=== PATIENT | female | born 1995 | race Caucasian/White ===

== ENCOUNTER 2020-10-07 22:58 | Emergency (ER) | payer OTHER ==
[~2020-10-07] VITALS: Ht 154.9 cm; Wt 97.7 kg
[2020-10-08] MEDS ORDERED: KETOROLAC 30 MG/ML 1ML VIAL IV ONE
[2020-10-08] MEDS ORDERED: AMPICILLIN SOD/SULBACTAM SOD 3 GM in D5W MINI-BAG PLUS 100 ML IV ONE (00:05)
[2020-10-08] MEDS ORDERED: dexameTHASONE 20MG/5ML VIAL (J1100 PER 1MG) IV ONE (00:05)
[2020-10-08 00:24] LABS: BASO % 0.3 % (0.0-1.0); EOS # 0.3 10^3/uL (0.0-0.5); EOS % 1.9 % (0.0-3.0); HEMATOCRIT 41.7 % (36.0-47.0); HEMOGLOBIN 13.3 g/dl (12.0-15.5); LYMPH # 2.4 10^3/uL (1.5-5.0); LYMPH % 16.7 % (24.0-44.0); MEAN CORPUSCULAR HEMOGLOBIN 26.9 pg (27.0-33.0); MEAN CORPUSCULAR HGB CONC 31.9 g/dl (32.0-36.5); MEAN CORPUSCULAR VOLUME 84.2 fl (80.0-96.0); MONO # 1.2 10^3/uL (0.0-0.8); MONO % 8.5 % (2.0-8.0); NEUTROPHILS # 10.4 10^3/uL (1.5-8.5); PLATELET COUNT, AUTOMATED 401 10^3/uL (150-450); RED BLOOD COUNT 4.95 10^6/uL (4.00-5.40); WHITE BLOOD COUNT 14.4 10^3/uL (4.0-10.0)
[2020-10-08 00:42] LABS: ERYTHROCYTE SEDIMENTATION RATE 13 mm/hr (0-20)
[2020-10-08] MEDS ORDERED: ISOVUE-370 76% 100ML VIAL As Ordered ONE (00:54)
[2020-10-08 01:10] LABS: ALT/SGPT 24 U/L (12-78); BILIRUBIN,DIRECT < 0.1 MG/DL (0.0-0.2); BILIRUBIN,TOTAL 0.3 MG/DL (0.2-1.0); C REACTIVE PROTEIN QUANTITATIV 4.37 MG/DL (0.00-0.30); TOTAL PROTEIN 7.8 GM/DL (6.4-8.2)
--- NOTE | 2020-10-08 01:45 | REPVR ---
PROCEDURE INFORMATION: Exam: CT Neck With Contrast Exam date and time: 10/08/2020 1:03 AM Age: 25 years old Clinical indication: Mass, lump, or swelling in neck; Additional info: Swelling right jaw/neck TECHNIQUE: Imaging protocol: Computed tomography images of the neck with contrast. Radiation optimization: All CT scans at this facility use at least one of these dose optimization techniques: automated exposure control; mA and/or kV adjustment per patient size (includes targeted exams where dose is matched to clinical indication); or iterative reconstruction. Contrast material: ISOVUE 370; Contrast volume: 75 ml; Contrast route: INTRAVENOUS (IV); COMPARISON: No relevant prior studies available. FINDINGS: Orbital cavity: The imaged portions of the globes and orbits are unremarkable. The superior aspect of the orbits was not imaged. Mastoid air cells: Clear. Auditory system: The middle ear spaces are clear. Paranasal sinuses: There is severe opacification of the right sphenoid sinus. There is mild polypoid opacification of the left maxillary sinus. There is mild mucosal thickening in the right maxillary sinus. There is mild opacification of the right ethmoid sinus. The frontal sinuses are not pneumatized. No air-fluid levels are noted in the sinuses. Nasal cavity: Unremarkable. Nasopharynx: Unremarkable. Oral Cavity: Unremarkable. Dental: There are dental caries involving the distal most right upper molar and dental caries and a periapical abscess involving the left lower 1st molar. Oropharynx: Unremarkable. No enlargement of the palatine tonsils. No tonsillar or peritonsillar abscess. Hypopharynx: Unremarkable. Larynx: Unremarkable. No swelling of the epiglottis. No mass. Retropharyngeal space: Unremarkable. No retropharyngeal edema or fluid collection. Submandibular/Parotid glands: Unremarkable. Thyroid: Unremarkable. Lymph nodes: No enlarged lymph nodes. Trachea: There is a 2 cm diverticulum arising from the right lateral wall of the trachea at the level of the thoracic inlet. Lungs: The imaged lung apices are clear. The lungs were not fully imaged. Bones/joints: There is a reversal of the normal cervical lordosis. There is no fracture, dislocation, or bony destructive changes. The temporomandibular joints are unremarkable. Vasculature: The vertebral arteries, common carotid arteries, internal carotid arteries, and external carotid arteries are patent and there is no dissection. The internal jugular veins are patent. Soft tissues: There is soft tissue swelling and edema along the left side of the jaw. No drainable soft tissue fluid collection or soft tissue gas is noted. IMPRESSION: 1. Soft tissue swelling and edema along the left side of the jaw, which may represent cellulitis. No soft tissue abscess. 2. Dental caries involving the distal most right upper molar and dental caries and a periapical abscess involving the left lower 1st molar. Electronically signed by: Marlo Abel On 10/08/2020 01:45:08 AM
[2020-10-08] MEDS ORDERED: AUGM875T28 PO (02:04)
[2020-10-08] MEDS ORDERED: KETO10TAB PO (02:04)
[2020-10-08] MEDS ORDERED: LIDO2SOL9 PO (02:04)
[2020-10-08 02:19] VITALS: BP 119/81
== END 2020-10-08 02:21 | disposition home or self-care (01) ==
LOC: M ED 22:58
DX: K02.9 Dental caries, unspecified (principal); L03.211 Cellulitis of face; F17.210 Nicotine dependence, cigarettes, uncomplicated
CPT/HCPCS: 70491; 80047; 80076; 83605; 84702; 85025; 85652; 86140; 96365; 96366; 96375; 99284; J1100; J1885; Q9967